=== PATIENT | female | born 1980 | race African-American/Black ===

== ENCOUNTER 2022-08-19 08:30 | Emergency (ER) | payer OTHER ==
[2022-08-19] MEDS ORDERED: KETOROLAC 30 MG/ML INJ ONE (09:18)
[2022-08-19] MEDS ORDERED: ONDANSETRON 4 MG/2 ML VIAL ONE (09:19)
[2022-08-19] MEDS ORDERED: NA CHLORIDE 0.9% 1,000 ML ONE (09:19)
[2022-08-19 09:23] LABS: Hematocrit 38.6 % (36.0-45.0); Lymphocytes % 6.6 % (15.3-44.8); MCV 86.2 fL (80-100); RBC Red Blood Cell Count 4.48 M/uL (3.86-4.86)
[2022-08-19 09:42] LABS: ALT/SGPT 56 U/L (13-56); AST/SGOT 88 U/L (15-37); Albumin 3.8 g/dL (3.4-5.0); Alkaline Phosphatase 69 U/L (45-117); BUN Blood Urea Nitrogen 13 mg/dL (7-18); Bicarbonate 26 mEq/L (21-32); Glomerular Filtration Rate 76 ml/min (=/>90); Glucose Level 159 mg/dL (74-106); Lipase 16 U/L (13-75); Potassium 3.8 mEq/L (3.5-5.1); Protein, Total 8.1 g/dL (6.4-8.2); Sodium Level 135 mEq/L (136-145)
[2022-08-19 09:43] LABS: Troponin High Sensitivity < 3.0 pg/mL (<58.9)
[2022-08-19 10:17] LABS: Blood Morphology Comment NOT SEEN (NOT SEEN); Platelet Estimate ADEQ; White Blood Cell Scan OK (OK)
--- NOTE | 2022-08-19 10:38 | RAD REPORT ---
EXAM DESCRIPTION: CT - Abdomen Pelvis W Contrast - 08/19/2022 10:16 am CLINICAL HISTORY: Abdominal pain COMPARISON: none. TECHNIQUE: Computed axial tomography of the abdomen pelvis was obtained. 100 cc Isovue-300 was admin istered intravenously. Oral contrast was not requested which limits evaluation of bowel and appendix All CT scans are performed using dose optimization technique as appropriate and may include automated exposure control or mA/KV adjustment according to patient size. FINDINGS: Cholecystectomy. Mild prominence biliary tree may be physiologic The spleen, pancreas, adrenals unremarkable Small renal cysts Normal appendix No evidence diverticulitis. No adnexal mass. Hysterectomy Small umbilical hernia IMPRESSION: No acute abnormality is displayed.
[2022-08-19 11:09] LABS: Specific Gravity 1.023 (1.005-1.030); Urine Bilirubin NEGATIVE (Negative); Urine Blood Negative (Negative); Urine Clarity Clear (Clear); Urine Color Colorless (Yellow); Urine Glucose NEGATIVE (Negative); Urine Protein NEGATIVE (Negative); Urine Urobilinogen Normal (Normal); Urine pH 7.5 (5.0-7.0)
--- NOTE | 2022-08-19 12:23 | ER ---
Nurse's Notes [facility] Name: Holly Paul Age: 42 yrs Sex: Female : 1980 Arrival Date: 08/19/2022 Time: 08:30 Bed 19 Private MD: Diagnosis: Back pain;Abdominal pain, Generalized Presentation: 08/19 08:35 Chief complaint: EMS states: patient started having shortness of breath about 0700 and ko1 then had mid back pain about 0730. Patient was diaphoretic upon their arrival. Coronavirus screen: At this time, the client does not indicate any symptoms associated with coronavirus-19. Ebola Screen: No symptoms or risks identified at this time. Initial Sepsis Screen: Does the patient meet any 2 criteria? No. Patient's initial sepsis screen is negative. Does the patient have a suspected source of infection? No. Patient's initial sepsis screen is negative. Risk Assessment: Do you want to hurt yourself or someone else? Patient reports no desire to harm self or others. Onset of symptoms was August 19, 2022. 08:35 Method Of Arrival: EMS: [facility] ko1 08:35 Acuity: SHERLYN 3 ko1 Triage Assessment: 09:26 General: Appears in no apparent distress. uncomfortable, Behavior is calm, cooperative, ko1 appropriate for age. Pain: Complains of pain in back. 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 - Social history:: Smoking status: Patient denies any tobacco usage or history of. Screenin:35 [facility] ED Fall Risk Assessment (Adult) History of falling in the last 3 months, ko1 including since admission No falls in past 3 months (0 pts) Confusion or Disorientation No (0 pts) Intoxicated or Sedated No (0 pts) Impaired Gait No (0 pts) Mobility Assist Device Used No (0 pt) Altered Elimination No (0 pt) Score/Fall Risk Level 0 - 2 = Low Risk Oriented to surroundings, Maintained a safe environment, Educated pt \T\ family on fall prevention, incl call for assistance when getting out of bed, Assessed \T\ reinforced patient's understanding of fall precautions, Provided non-skid footwear, Hourly rounding (assess needs \T\ fall precautionary measures) done, Used ambulatory aids as needed (educated on \T\ assisted with), Used gait belt as appropriate. Abuse screen: Denies threats or abuse. Denies injuries from another. Nutritional screening: No deficits noted. Tuberculosis screening: No symptoms or risk factors identified. Assessment: 08:35 Neuro: No deficits noted. Cardiovascular: No deficits noted. Respiratory: Reports ko1 shortness of breath at rest. GI: Reports nausea. : No deficits noted. EENT: No deficits noted. Derm: No deficits noted. Musculoskeletal: No deficits noted. Vital Signs: 08:35 BP 129 / 54; Pulse 68; Resp 18; Temp 97; Pulse Ox 99% on R/A; Pain 3/10; ko1 08:45 BP 130 / 68; Pulse 65; Resp 16; Pulse Ox 100% on R/A; ko1 09:00 BP 128 / 68; Pulse 72; Resp 16; Pulse Ox 100% ; ko1 09:15 BP 134 / 67; Pulse 67; Resp 16; Pulse Ox 100% ; ko1 10:00 BP 127 / 63; Pulse 68; Resp 16; Pulse Ox 99% ; ko1 12:31 BP 128 / 68; Pulse 72; Resp 16; Pulse Ox 99% ; ko1 08:35 Pain Scale: Adult ko1 Vitals: 08:35 Cardiac Rhythm Assessment Sinus rhythm. ko1 ED Course: 08:35 Patient arrived in ED. kb 08:35 Mckenzie Smith [facility]-C [facility] kb 08:35 Nestor Aleman MD is Attending Physician. kb 08:35 No provider procedures requiring assistance completed. ko1 08:35 Patient has correct armband on for positive identification. Placed in gown. Bed in low ko1 position. Call light in reach. Side rails up X2. Adult w/ patient. Client placed on continuous cardiac and pulse oximetry monitoring. NIBP monitoring applied. night monitor on. Door closed. Noise minimized. Lights dimmed. Warm blanket given. Head of bed elevated. 08:49 Elizabeth Sherman, RN is Primary Nurse. ko1 09:10 Inserted saline lock: 22 gauge in right antecubital area, using aseptic technique. ko1 Blood collected. Patient maintains SpO2 saturation greater than 95% on room air. 09:13 Troponin HS Sent. ko1 09:14 CBC with Diff Sent. ko1 09:14 CMP Sent. ko1 09:14 Lipase Sent. ko1 09:26 Triage completed. ko1 09:26 Arm band placed on right wrist. Patient placed in an exam room, on a stretcher, on ko1 monitoring coordinator, on pulse oximetry, Patient notified of wait time. 10:18 CT Abd/Pelvis - IV Contrast Only In Process Unspecified. EDMS 11:56 Troponin High Sensitivity Sent. ko1 12:31 IV discontinued, intact, bleeding controlled, No redness/swelling at site. Pressure ko1 dressing applied. Administered Medications: 09:13 Drug: NS 0.9% IV 1000 ml Route: IV; Rate: 1 bolus; Site: right antecubital; ko1 09:54 Follow up: Response: No adverse reaction; IV Status: Completed infusion; IV Intake: ko1 1000ml 09:13 Drug: Ondansetron IVP 4 mg Route: IVP; Site: right antecubital; ko1 09:54 Follow up: Response: No adverse reaction ko1 09:14 Drug: TORadol - Ketorolac IVP 15 mg Route: IVP; Site: right antecubital; ko1 09:55 Follow up: Response: No adverse reaction ko1 11:57 Drug: Famotidine IVP 20 mg Route: IVP; Site: right antecubital; ko1 Medication: 08:35 VIS not applicable for this client. ko1 Intake: 09:54 IV: 1000ml; Total: 1000ml. ko1 Outcome: 12:22 Discharge ordered by . kb 12:31 Discharged to home ambulatory, with family. ko1 12:31 Condition: stable 12:31 Discharge instructions given to patient, family, Instructed on discharge instructions, follow up and referral plans. medication usage, Demonstrated understanding of instructions, follow-up care, medications, Prescriptions given X 1. 12:51 Patient left the ED. ph Signatures: Dispatcher [employer] EDMS Mckenzie Smith, TARYN ACEVES-Alesha Verde, RN RN ph Elizabeth Sherman, HUDSON RN ko1
--- NOTE | 2022-08-19 12:23 | EDPHYS ---
Physician Documentation [facility] Name: Holly Paul Age: 42 yrs Sex: Female : 1980 Arrival Date: 08/19/2022 Time: 08:30 Bed 19 Private MD: ED Physician Nestor Aleman HPI: 08/19 13:13 This 42 yrs old Black Female presents to ER via EMS with complaints of back pain. kb 13:13 The patient presents with pain that is acute. The symptoms are located in the thoracic kb area and left flank. Onset: The symptoms/episode began/occurred just prior to arrival. The pain does not radiate. Associated signs and symptoms: Pertinent positives: abdominal pain, nausea. The problem was sustained without known cause. Modifying factors: The patient symptoms are alleviated by nothing, the patient symptoms are aggravated by nothing. Severity of symptoms: At their worst the symptoms were moderate, in the emergency department the symptoms have improved. The patient has not experienced similar symptoms in the past. The patient has not recently seen a physician. Pt reports she woke up with back pain that feels similar to previous episodes of GERD, but she normally has that in her chest not back. . 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 - Social history:: Smoking status: Patient denies any tobacco usage or history of. ROS: 13:12 Constitutional: Negative for fever, chills, and weight loss. kb 13:12 Abdomen/GI: Positive for abdominal pain, nausea. 13:12 Back: Positive for pain at rest, pain with movement. 13:12 All other systems are negative. Exam: 09:36 ECG was reviewed by the Attending Physician. kb 13:12 Constitutional: This is a well developed, well nourished patient who is awake, alert, kb and in no acute distress. Head/Face: Normocephalic, atraumatic. ENT: Moist Mucous membranes Cardiovascular: Regular rate and rhythm with a normal S1 and S2. No gallops, murmurs, or rubs. No pulse deficits. Respiratory: Respirations even and unlabored. No increased work of breathing. Talking in full sentences Skin: Warm, dry with normal turgor. Normal color. MS/ Extremity: Pulses equal, no cyanosis. Neurovascular intact. Full, normal range of motion. Neuro: Awake and alert, GCS 15, oriented to person, place, time, and situation. Moves all extremities. Normal gait. 13:12 Abdomen/GI: Inspection: abdomen appears normal, Bowel sounds: normal, Palpation: soft, in all quadrants, mild abdominal tenderness, in all quadrants. 13:12 Back: pain, that is mild, of the lumbar area and left flank, ROM is normal, CVA tenderness, that is mild, is noted on the left. 13:14 Neuro: Exam negative for acute changes. kb Vital Signs: 08:35 BP 129 / 54; Pulse 68; Resp 18; Temp 97; Pulse Ox 99% on R/A; Pain 3/10; ko1 08:45 BP 130 / 68; Pulse 65; Resp 16; Pulse Ox 100% on R/A; ko1 09:00 BP 128 / 68; Pulse 72; Resp 16; Pulse Ox 100% ; ko1 09:15 BP 134 / 67; Pulse 67; Resp 16; Pulse Ox 100% ; ko1 10:00 BP 127 / 63; Pulse 68; Resp 16; Pulse Ox 99% ; ko1 12:31 BP 128 / 68; Pulse 72; Resp 16; Pulse Ox 99% ; ko1 08:35 Pain Scale: Adult ko1 MDM: 08:35 Patient medically screened. kb 13:13 Data reviewed: vital signs, nurses notes. kb 08/19 08:36 Order name: CBC with Diff; Complete Time: 10:19 kb 08/19 08:36 Order name: CMP; Complete Time: 09:57 kb 08/19 08:36 Order name: Lipase; Complete Time: 09:57 kb 08/19 08:36 Order name: Urinalysis w/ reflexes; Complete Time: 11:19 kb 08/19 08:36 Order name: Troponin HS; Complete Time: 09:57 kb 08/19 09:28 Order name: CBC Smear Scan; Complete Time: 10:19 EDMS 08/19 11:38 Order name: Troponin High Sensitivity; Complete Time: 12:21 kb 08/19 09:57 Order name: CT Abd/Pelvis - IV Contrast Only; Complete Time: 10:39 kb 08/19 08:36 Order name: EKG; Complete Time: 08:37 kb 08/19 08:36 Order name: IV Saline Lock; Complete Time: 09:14 kb 08/19 08:36 Order name: Labs collected and sent; Complete Time: 09:14 kb 08/19 08:36 Order name: EKG - Nurse/Tech; Complete Time: 08:48 kb EC:36 Rate is 67 beats/min. Rhythm is regular. QRS [place] is Normal. LA interval is normal at kb 156 msec. QRS interval is normal at 88 msec. QT interval is normal at 439 msec. Administered Medications: 09:13 Drug: NS 0.9% IV 1000 ml Route: IV; Rate: 1 bolus; Site: right antecubital; ko1 09:54 Follow up: Response: No adverse reaction; IV Status: Completed infusion; IV Intake: ko1 1000ml 09:13 Drug: Ondansetron IVP 4 mg Route: IVP; Site: right antecubital; ko1 09:54 Follow up: Response: No adverse reaction ko1 09:14 Drug: TORadol - Ketorolac IVP 15 mg Route: IVP; Site: right antecubital; ko1 09:55 Follow up: Response: No adverse reaction ko1 11:57 Drug: Famotidine IVP 20 mg Route: IVP; Site: right antecubital; ko1 Disposition: 15:18 Co-signature as Attending Physician, Nestor Aleman MD I reviewed the patient's care rn provided by the Advanced Practice Provider and agree with the diagnosis and treatment plan. Disposition Summary: 08/19/22 12:22 Discharge Ordered Location: Home kb Condition: Stable kb Diagnosis - Back pain kb - Abdominal pain, Generalized kb Followup: kb - With: Emergency Department - When: As needed - Reason: Worsening of condition Followup: kb - With: Private Physician - When: 2 - 3 days - Reason: Recheck today's complaints, Continuance of care, Re-evaluation by your physician Discharge Instructions: - Discharge Summary Sheet kb - Acute Back Pain, Adult kb - Abdominal Pain, Adult, [id number] kb Forms: - Medication Reconciliation Form kb - Thank You Letter kb - Antibiotic Education kb - Prescription Opioid Use kb Prescriptions: - Zofran 4 mg Oral Tablet - take 1 tablet by ORAL route every 6 hours As needed; 12 tablet; Refills: 0, kb Product Selection Permitted Signatures: Dispatcher [employer] EDMckenzie Webster FNP-C FNP-Ckb Nestor Aleman MD MD rn Elizabeth Sherman, RN RN ko1
[2022-08-19 12:57] VITALS: TEMP 97
[2022-08-19 13:04] VITALS: O2SAT 99
[2022-08-19 13:06] VITALS: BP 128/68
--- NOTE | 2022-08-20 14:10 | EKG ---
Test Date: 2022-08-19 Test Time: 08:52:25 Program Coordinator Executive Education: KATARZYNA MEASUREMENT RESULTS: Intervals: Rate: 67 IN: 156 QRSD: 88 QT: 416 QTc: 439 [place]: P: 38 IN: 156 QRS: 53 T: -14 INTERPRETIVE STATEMENTS: Normal sinus rhythm Normal ECG No previous ECG available for comparison Electronically Signed On 08-20-22 14:08:24 CDT by Sean Eng
== END 2022-08-19 12:51 | disposition home or self-care (01) ==
LOC: ER 08:30
DX: M54.9 Dorsalgia, unspecified (principal); R10.84 Generalized abdominal pain
CPT/HCPCS: 96361; 93005; 85025; 36415; 81003; 84484 ×2; 83690; 80053; 74177; 96375; 96374; 99285; Q9967; J2405; J7030